=== PATIENT | female | born 1935 | race Caucasian/White ===

== ENCOUNTER → 2018-05-14 | Outpatient (CLI) | payer MEDICARE, BC ==
[~2018-05-14] MED LIST: AMOCLA875 PO; ASPI325; ASPI325 PO; ASPI81CH PO; B-COMPLEX WIT400 MCG PO; BIOTIN1000 MCG PO; CARV25 PO; CLOP75 PO; COLE625; COLE625 PO; ERGO400 PO; EZET10; EZET10 PO; LEVSOD100 PO; LEVSOD25
== END | disposition home or self-care (01) ==
LOC: PLD 10:19 → LAB SHORT 10:19
DX: D48.5 Neoplasm of uncertain behavior of skin (principal)
CPT/HCPCS: 88305

== ENCOUNTER → 2018-08-25 | Outpatient (CLI) | payer MEDICARE, BC | END | disposition home or self-care (01) | LOC: LAB 14:24 → LAB SHORT 14:24 | DX: L08.0 Pyoderma (principal) | CPT/HCPCS: 87070; 87205 ==

== ENCOUNTER → 2018-09-01 | Outpatient (CLI) | payer MEDICARE, BC | END | disposition home or self-care (01) | LOC: PLD 14:33 → LAB SHORT 14:33 | DX: D48.5 Neoplasm of uncertain behavior of skin (principal) | CPT/HCPCS: 88305 ==

== ENCOUNTER → 2018-09-08 | Outpatient (CLI) | payer MEDICARE, BC | END | disposition home or self-care (01) | LOC: LAB SHORT 10:41 → LAB 10:41 | DX: L08.0 Pyoderma (principal) | CPT/HCPCS: 87070; 87205 ==

== ENCOUNTER → 2018-09-15 | Outpatient (CLI) | payer MEDICARE, BC | END | disposition home or self-care (01) | LOC: LAB 13:47 → LAB SHORT 13:47 | DX: L08.0 Pyoderma (principal) | CPT/HCPCS: 87070; 87205 ==

== ENCOUNTER → 2022-07-18 | Outpatient (CLI) | payer MEDICARE, BC | END | disposition home or self-care (01) | LOC: PLD 11:59 → LAB 11:59 → LAB SHORT 11:59 | DX: C44.42 Squamous cell carcinoma of skin of scalp and neck (principal) | CPT/HCPCS: 88305 ==

== ENCOUNTER 2024-04-03 17:09 | Emergency (ER) | payer MEDICARE, BC ==
[~2024-04-03] VITALS: Ht 167.6 cm; Wt 68.0 kg
[2024-04-03 17:42] LABS: BASOPHILS ABSOLUTE AUTO 0.07 K/mm3 (0.00-0.23); BASOPHILS PERCENT AUTO 1 % (0-2); EOSINOPHILS ABSOLUTE AUTO 0.11 K/mm3 (0.00-0.68); EOSINOPHILS PERCENT AUTO 1 % (0-6); Hematocrit 30.1 % (33.0-51.0); Hemoglobin 9.8 g/dL (11.5-16.0); IMMATURE GRAN ABSOLUTE AUTO 0.07 K/mm3 (0.00-0.10); IMMATURE GRAN PERCENT AUTO 1 % (0-1); LYMPHOCYTES ABSOLUTE AUTO 1.09 K/mm3 (0.84-5.20); LYMPHOCYTES PERCENT AUTO 12 % (21-46); MONOCYTES PERCENT AUTO 6 % (4-13); Mean Corpuscular HGB Conc 32.6 g/dL (31.5-36.5); Mean Corpuscular Volume 95 fL (80-100); Mean Platelet Volume 10.2 fL (9.1-12.4); NEUTROPHILS PERCENT AUTO 79 % (41-73); Platelet Count 244 K/mm3 (150-400); RDW Standard Deviation 45.9 fL (35.1-46.3); Red Blood Cell Count 3.16 M/mm3 (3.80-5.20); White Blood Cell Count 9.34 K/mm3 (4.00-11.30)
[2024-04-03 18:02] LABS: Source, Urine Clean Catch
[2024-04-03 18:06] LABS: Appearance, Urine Cloudy (Clear); Bilirubin, Urine Neg (Neg); Blood, Urine 1+ (Neg); Color, Urine Yellow (P-Yellow); Glucose Qualitative, Urine Neg (Neg); Ketones, Urine 2+ (Neg); Leukocyte Esterase, Urine Neg (Neg); Nitrite, Urine Pos (Neg); Protein, Urine 1+ (Neg); Specific Gravity, Urine 1.025 (1.003-1.022); Urobilinogen, Urine 1+ (Normal)
[2024-04-03 18:11] LABS: Free Thyroxine 1.06 ng/dL (0.70-1.60)
[2024-04-03 18:14] LABS: Albumin, Blood 3.7 g/dL (3.4-5.0); Albumin/Globulin Ratio 1.2 (0.8-1.8); Bilirubin, Total 0.8 mg/dL (0.1-1.0); Bun/Creatinine Ratio 36.4 (12.0-20.0); Calcium, Blood 9.1 mg/dL (8.5-10.1); Creatinine, Blood 0.74 mg/dL (0.40-1.00); Globulin, Blood 3.1 g/dL (2.2-4.0); Potassium, Blood 4.1 mmol/L (3.5-5.5); Thyroid Stimulating Hormone 4.13 uIU/mL (0.360-4.800); Total Protein, Blood 6.8 g/dL (6.4-8.2)
[2024-04-03 18:15] LABS: Bacteria Many /hpf; Red Blood Cells, Urine 0-2 /hpf (0-2); Squamous Epithelial Cells Few /hpf (Few); White Blood Cells, Urine 0-2 /hpf (0-5)
[2024-04-03 18:16] LABS: Amorphous Light (0-Heavy); Calcium Oxalate Crystals Rare /hpf; Mucus Light (0-Heavy)
[2024-04-03] MEDS ORDERED: Cephalexin Monohydrate 500 MG Cap PO ONE (18:45)
[2024-04-03 19:30] VITALS: BP 134/68
[2024-04-03] MEDS ORDERED: CEPH500 PO (19:46)
== END 2024-04-03 19:41 | disposition home or self-care (01) ==
LOC: ER 17:09
PROVIDERS: Student in an Organized Health Care Education/Training Program
DX: G93.40 Encephalopathy, unspecified (principal); N30.00 Acute cystitis without hematuria; I25.2 Old myocardial infarction; I50.9 Heart failure, unspecified; D64.9 Anemia, unspecified; Z88.2 Allergy status to sulfonamides; Z88.8 Allergy status to other drugs, medicaments and biological substances; Z79.890 Hormone replacement therapy; Z79.82 Long term (current) use of aspirin; Z79.899 Other long term (current) drug therapy; Z91.81 History of falling; W18.30XA Fall on same level, unspecified, initial encounter
CPT/HCPCS: 70450; 80053; 81001; 83735; 84439; 84443; 85025; 87086; 93005; 93010; 99284-25; A9270

== ENCOUNTER 2024-04-04 17:02 | Emergency (ER) | payer MEDICARE, BC ==
[~2024-04-04] VITALS: Ht 165.1 cm; Wt 59.9 kg
[~2024-04-04 17:02] MED LIST changes: +CEPH500 PO
[2024-04-04 17:21] VITALS: BP 149/94
[2024-04-04] MEDS ORDERED: Cephalexin Monohydrate 500 MG Cap PO ONE (19:30)
== END 2024-04-04 20:30 | disposition home or self-care (01) ==
LOC: ER 17:02
DX: N39.0 Urinary tract infection, site not specified (principal); S09.90XA Unspecified injury of head, initial encounter; W18.30XA Fall on same level, unspecified, initial encounter; I25.2 Old myocardial infarction; I50.9 Heart failure, unspecified; F03.90 Unspecified dementia, unspecified severity, without behavioral disturbance, psychotic disturbance, mood disturbance, and anxiety; Z88.2 Allergy status to sulfonamides; Z88.8 Allergy status to other drugs, medicaments and biological substances; Z79.899 Other long term (current) drug therapy
CPT/HCPCS: 70450; 99283-25; A9270